=== PATIENT | female | born 1990 | race Caucasian/White ===

== ENCOUNTER 2018-04-05 23:41 | Emergency (ER) | payer OTHER ==
[2018-04-06] MEDS ORDERED: ZITHTAB PO (00:53)
--- NOTE | 2018-04-06 00:53 | PD ---
HPI Chief Complaint Patient complains of "cold "possible strep throat, headache, nausea vomiting Date Seen: Apr 06, 2018 Time Seen: 00:40 Travel History International Travel<30 Days: No Contact w/Intl Traveler<30Days: No Known Affected Area: No History of Present Illness HPI Patient is 27-year-old 37 weeks and [address] Sung who presents complaining of upper respiratory cold symptoms possible strep throat[ her daughter come down with strep throat], headache nausea and vomiting last 24-36 hours. Denies vaginal bleeding leakage or contractions Weeks Gestation: 37 Para: 1 : 2 History Past Medical History Narrative Medical GERD Obstetric History Obstetric History 1 vaginal delivery at term Social History Alcohol Use: No Tobacco Use: No Substance Abuse: No Allergies-Medications Home Meds Active Scripts Azithromycin (Zithromax Z-René) 250 Mg Dspk, 250 MG PO DIRECTED for Infection , #1 DSPK 0 Refills 500 MG (2 tabs) day 1, then 1 tab days 2-5. Prov:Jamey Duke II, MD 04/06/18 Review of Systems General / Constitutional: No: Fever, Weight Gain, Chills, Other Eyes: No: Diploplia, Blurred Vision, Visual changes, Pain, Photophobia HENT: Headaches, No: Vertigo, Lightheadedness Cardiovascular: No: Irregular Rhythm, Chest Pain or Discomfort, Palpitations, Tachycardia, Syncope, Varicosities, Edema, Cyanosis Respiratory: Cough, No: Short of Breath, Other Gastrointestinal: Nausea, Vomiting, No: Diarrhea Genitourinary: No: Decreased Urinary Output, Oliguria Musculoskeletal: No: Limited ROM, Weakness, Cramping, Edema, Pain Skin: No Rash, No Itching, No Dryness, No Lumps, No Change in Pigmentation, No Change in Nails, No Alopecia, No Lesions Neurologic: No: Weakness, Dizziness, Syncope, Focal Abnormalities, Coordination Problem, Headache, Slurred Speech, Seizures Psychiatric: No: Depression, Suicidal Ideations, Homicidal Ideation Endocrine: No: Heat Intolerance, Cold Intolerance, Polydipsia, Polyuria, Other Physical Exam Narrative GENERAL: Well-nourished, well-developed patient. SKIN: Warm and dry. HEAD: Normocephalic and atraumatic. EYES: No scleral icterus. No injection or drainage. ENT: No nasal drainage noted. Mucous membranes pink. Airway patent. NECK: Supple, trachea midline. No JVD. CARDIOVASCULAR: Regular rate and rhythm without murmurs, gallops, or rubs. RESPIRATORY: Breath sounds equal bilaterally. No accessory muscle use. BREASTS: Bilateral exam showed no masses , no retractions, no nipple discharge. ABDOMEN/GI: Abdomen soft, non-tender, bowel sounds present, no rebound, no guarding Gravid to [-37] weeks size Fundal Height: [37-] GENITOURINARY: Membranes: [intact ] Uterine Contractions: [none-] FHT's: Category: [1-] Baseline: [133-] Reactive: [R-] Variability: [mod-] Decels: [0-] EXTREMITIES: No cyanosis or edema. BACK: Nontender without obvious deformity. No CVA tenderness. NEUROLOGICAL: Awake and alert. Motor and sensory grossly within normal limits. Five out of 5 muscle strength in all muscle groups. Normal speech. Data Data Labs Urine dip on OB ED is negative for infection negative for protein negative for ketones MDM Interpretation(s) 27-year-old white female at 37 weeks who presented complaining of respiratory cold symptoms with sinus drainage stuffiness and cough, she has had nausea and vomiting last night but did not call her doctor during the day today to tell her all about these things, blood pressure is normal, PIH lab was drawn a week ago within normal limits, no proteinuria in her urine tonight Plan Plan for the patient to begin on a Z-René antibiotic for URI, Synex liquid for cough sinus congestion, Claritin for sinus congestion. She is to follow with Dr. Sung as scheduled on Sunday 2 days away Diagnosis Diagnosis: Primary Impression: Upper respiratory infection Additional Impressions: Nausea and vomiting in Headache 37 or more weeks gestation of Disposition: DISCHARGE HOME Condition: Stable Scripts Hydrocodone-Chlorpheniramine 12 HR Liq (Tussionex Pennkinetic Ext 12 HR Liq) 10- 8 Mg/5 Ml Susp 5 ML PO Q12H Y for COUGH AND/OR COLD SYMPTOMS for 5 Days, #50 ML 0 Refills Prov: Jamey Duke II, MD 04/06/18 Loratadine (Claritin) 10 Mg Cap 10 MG PO DAILY for Allergy Management for 10 Days, #10 CAP 0 Refills Prov: Jamey Duke II, MD 04/06/18 Azithromycin (Zithromax Z-René) 250 Mg Dspk 250 MG PO DIRECTED for Infection, #1 DSPK 0 Refills 500 MG (2 tabs) day 1, then 1 tab days 2-5. Prov: Jamey Duke II, MD 04/06/18 Patient Instructions: General Instructions, Movement (ED), Abdominal Pain in (ED) Departure Forms: Tests/Procedures Jamey Duke II, MD Apr 06, 2018 00:53
[2018-04-06] MEDS ORDERED: CLAR10CA3 PO (00:54)
[2018-04-06] MEDS ORDERED: TUSSSUS2 PO (00:55)
== END 2018-04-06 01:13 | disposition home or self-care (01) ==
LOC: HOBED 23:41
DX: O99.513 Diseases of the respiratory system complicating pregnancy, third trimester (principal); J06.9 Acute upper respiratory infection, unspecified; O21.2 Late vomiting of pregnancy; O26.893 Other specified pregnancy related conditions, third trimester; R51 Headache; Z3A.37 37 weeks gestation of pregnancy
CPT/HCPCS: 59025

== ENCOUNTER 2018-04-08 16:25 | Inpatient (IN) | payer OTHER ==
[2018-04-08] VITALS (59 sets, daily range): BP systolic 107–145; BP diastolic 60–103; PULSE 82–129; RESP 18–20; TEMP 99–100.4; O2SAT 98–100
[~2018-04-08 16:25] MED LIST: CLAR10CA3 PO; TUSSSUS2 PO; ZITHTAB PO
[2018-04-08] MEDS ORDERED: LACTATED RINGER'S 1000 ML INJ 1,000 ML IV PRN (17:06)
--- NOTE | 2018-04-08 17:11 | HHI.HP ---
HPI Chief Complaint PROM 04/05/16 37 6/7 weeks no evidence of infection admitted for induction H & P dictated Date Seen: Apr 08, 2018 Travel History International Travel<30 Days: No Contact w/Intl Traveler<30Days: No Known Affected Area: No Allergies-Medications (Allergen,Severity, Reaction): Coded Allergies: No Known Allergies (Unverified , 04/08/18) Home Meds Active Scripts Hydrocodone-Chlorpheniramine 12 HR Liq (Tussionex Pennkinetic Ext 12 HR Liq) 10- 8 Mg/5 Ml Susp, 5 ML PO Q12H Y for COUGH AND/OR COLD SYMPTOMS for 5 Days, #50 ML 0 Refills Prov:Jamey Duke II, MD 04/06/18 Loratadine (Claritin) 10 Mg Cap, 10 MG PO DAILY for Allergy Management for 10 Days, #10 CAP 0 Refills Prov:Jamey Duke II, MD 04/06/18 Azithromycin (Zithromax Z-René) 250 Mg Dspk, 250 MG PO DIRECTED for Infection , #1 DSPK 0 Refills 500 MG (2 tabs) day 1, then 1 tab days 2-5. Prov:Jamey Duke II, MD 04/06/18 Physical Exam Narrative GENERAL: Well-nourished, well-developed patient. SKIN: Warm and dry. HEAD: Normocephalic and atraumatic. EYES: No scleral icterus. No injection or drainage. ENT: No nasal drainage noted. Mucous membranes pink. Airway patent. NECK: Supple, trachea midline. No JVD. CARDIOVASCULAR: Regular rate and rhythm without murmurs, gallops, or rubs. RESPIRATORY: Breath sounds equal bilaterally. No accessory muscle use. BREASTS: Bilateral exam showed no masses , no retractions, no nipple discharge. ABDOMEN/GI: Abdomen soft, non-tender, bowel sounds present, no rebound, no guarding Gravid to [-] weeks size Fundal Height: [-] GENITOURINARY: External Genitalia: intact and normal in appearance BUS glands: [-] Cervix: [-] Dilatation: [-] Effacement: [-] Station: [-] Presentation: [-] Membranes: [intact or ruptured] Uterine Contractions: [-] FHT's: Category: [-] Baseline: [-] Reactive: [-] Variability: [-] Decels: [-] EXTREMITIES: No cyanosis or edema. BACK: Nontender without obvious deformity. No CVA tenderness. NEUROLOGICAL: Awake and alert. Motor and sensory grossly within normal limits. Five out of 5 muscle strength in all muscle groups. Normal speech. Caprini VTE Risk Assessment Caprini VTE Risk Assessment: No/Low Risk (score <= 1) Caprini Risk Assessment Model Point Value = 1 Point Value = 2 Point Value = 3 Point Value = 5 Age 41-60 Minor surgery BMI > 25 kg/m2 Swollen legs Varicose veins or History of unexplained or recurrent spontaneous Oral contraceptives or hormone replacement Sepsis (< 1 month) Serious lung disease, including pneumonia (< 1 month) Abnormal pulmonary function Acute myocardial infarction Congestive heart failure (< 1 month) History of inflammatory bowel disease Medical patient at bed rest Age 61-74 Arthroscopic surgery Major open surgery (> 45 min) Laparoscopic surgery (> 45 min) Malignancy Confined to bed (> 72 hours) Immobilizing plaster cast Central venous access Age >= 75 History of VTE Family history of VTE Factor V Leiden Prothrombin [id number] Lupus anticoagulant Anticardiolipin antibodies Elevated serum homocysteine Heparin-induced thrombocytopenia Other congenital or acquired thrombophilia Stroke (< 1 month) Elective arthroplasty Hip, pelvis, or leg fracture Acute spinal cord injury (< 1 month) Prophylaxis Regimen Total Risk Factor Score Risk Level Prophylaxis Regimen 0-1 Low Early ambulation 2 Moderate Order ONE of the following: *Sequential Compression Device (SCD) *Heparin 5000 units SQ BID 3-4 Higher Order ONE of the following medications: *Heparin 5000 units SQ TID *Enoxaparin/Lovenox 40 mg SQ daily (WT < 150 kg, CrCl > 30 mL/min) *Enoxaparin/Lovenox 30 mg SQ daily (WT < 150 kg, CrCl > 10-29 mL/min) *Enoxaparin/Lovenox 30 mg SQ BID (WT < 150 kg, CrCl > 30 mL/min) AND/OR *Sequential Compression Device (SCD) 5 or more Highest Order ONE of the following medications: *Heparin 5000 units SQ TID (Preferred with Epidurals) *Enoxaparin/Lovenox 40 mg SQ daily (WT < 150 kg, CrCl > 30 mL/min) *Enoxaparin/Lovenox 30 mg SQ daily (WT < 150 kg, CrCl > 10-29 mL/min) *Enoxaparin/Lovenox 30 mg SQ BID (WT < 150 kg, CrCl > 30 mL/min) AND *Sequential Compression Device (SCD) Data Data Orders Orders ^ Non Stress Test (04/08/18 17:06) Response To Medication .Post New Med Administration, Reaction (04/08/18 17:06) ^ Discontinue Medication (04/08/18 17:06) Oxytocin Drip (1--30) (04/08/18 17:15) Admit To Inpatient (04/08/18 ) Vital Signs (Adult) .Per protocol (04/08/18 17:06) Heart (04/08/18 17:) Amnioinfusion (04/08/18 17:) Urinary Catheter Management .ONCE (04/08/18 17:06) Lactated Ringer's 1000 Ml Inj (Lr 1000 M (04/08/18 17:06) Lactated Ringer's 1000 Ml Inj (Lr 1000 M (04/08/18 17:06) Sodium Chlorid 0.9% 500 Ml Inj (Ns 500 M (04/08/18 17:15) Sodium Chlor 0.9% 1000 Ml Inj (Ns 1000 M (04/08/18 17:26) Lidocaine 1% Inj (50 Ml) (Xylocaine 1% I (04/08/18 17:15) Citric Acid-Sodium Citrate Liq (Bicitra (04/08/18 17:15) Fentanyl Inj (Fentanyl Inj) (04/08/18 17:15) Fentanyl Inj (Fentanyl Inj) (04/08/18 17:15) Cefazolin Inj (Ancef Inj) (04/08/18 21:15) Complete Blood Count With Diff (04/08/18 17:06) Hold Clot (04/08/18 17:06) Abo/Rh Blood Type (04/08/18 17:06) Urinalysis - C+S If Indicated (04/08/18 17:06) Drug Screen, Random Urine (04/08/18 17:06) Ob/Psych Drug Screen, Urine (04/08/18 17:06) Hepatitis Profile (04/08/18 17:06) Resp Oxygen Non Rebreathe Mask (04/08/18 ) ^ Epidural / Intrathecal Infus (04/08/18 17:06) Oxytocin 30 Units-500ml Premix (Pitocin (04/08/18 17:15) Lidocaine 1% Inj (50 Ml) (Xylocaine 1% I (04/08/18 17:15) Light Mineral Oil (Muri-Lube Oil) (04/08/18 17:15) Inpatient Certification (04/08/18 ) Specimen To Be Collected PRN (04/08/18 17:06) Specimen To Be Collected PRN (04/08/18 17:06) Diet Regular Basic (04/08/18 Dinner) Yuliya Sung MD Apr 08, 2018 17:11
[2018-04-08] MEDS ORDERED: MINERAL OIL 10 ML VIAL TOPICAL PRN (17:15)
[2018-04-08] MEDS ORDERED: OXYTOCIN 30 UNITS-500ML PREMIX 500 ML IV ONE (17:15)
[2018-04-08] MEDS ORDERED: SODIUM CHLORID 0.9% 500 ML INJ 500 ML IV PRN (17:15)
[2018-04-08] MEDS ORDERED: LIDOCAINE HCL 1% 50 ML VIAL I-DERMAL PRN (17:15)
[2018-04-08] MEDS ORDERED: CITRIC ACID-SODIUM CITRATE LIQ 30 ML UDC PO SCH (17:15)
[2018-04-08] MEDS ORDERED: LIDOCAINE HCL 1% 50 ML VIAL INFIL PRN (17:15)
[2018-04-08] MEDS ORDERED: OXYTOCIN 30 UNITS-500ML PREMIX 500 ML IV PRN (17:15)
[2018-04-08 17:20] LABS: AUTOMATED NEUTROPHIL # 12.9 TH/MM3 (1.8-7.7); BASOPHIL % 0.3 % (0.0-2.0); EOSINOPHIL # 0.3 TH/MM3 (0-0.4); EOSINOPHIL % 1.7 % (0.0-4.0); HEMATOCRIT 37.9 % (35.0-46.0); LYMPH % 10.2 % (9.0-44.0); LYMPHOCYTE # 1.6 TH/MM3 (1.0-4.8); MEAN CELL VOLUME 86.7 FL (80.0-100.0); MEAN CORPUSCULAR HEMOGLOBIN 29.6 PG (27.0-34.0); MEAN CORPUSCULAR HGB CONC 34.2 % (32.0-36.0); MEAN PLATELET VOLUME 8.2 FL (7.0-11.0); MONO % 4.4 % (0.0-8.0); MONOCYTE # 0.7 TH/MM3 (0-0.9); NEUT % 83.4 % (16.0-70.0); PLATELET COUNT 214 TH/MM3 (150-450); RED BLOOD COUNT 4.38 MIL/MM3 (4.00-5.30); RED CELL DISTRIBUTION WIDTH 13.8 % (11.6-17.2); WHITE BLOOD COUNT 15.5 TH/MM3 (4.0-11.0)
--- NOTE | 2018-04-08 17:29 | MP ---
cc: Yuliya Sung MD DATE OF OPERATION: 04/08/2018 REASON FOR ADMISSION: Thirty-seven and 6/7 week intrauterine , with gross rupture of membranes possibly since Sunday evening, some symptomatology of preeclampsia without severe features. HISTORY OF PRESENT CONDITION: The patient is a pleasant, healthy [place] female, , 2, para 1-0-0-1, with LMP 07/17/2017 and EDC 04/23/2018 by her period and 04/18/2018 by 12-week ultrasound, currently at 37-6/7 by LMP. She has had excellent care with no gestational diabetes, no labor and no elevated blood pressures until 36 weeks, her diastolic started to be persistently in the 80s. She was having some proteinuria 1+ and having some headaches and some nausea. She was worked up for LFTs, uric acid and labs were all normal in the last several weeks, but she was counseled carefully on preeclampsia. On Sunday, she was noting leakage and nausea and vomiting and she went to the OB ED. There, she was determined to have a probable GI bug and was sent home. She continued to have leaking over the weekend and today she comes in. Her blood pressure is 110/80. She has 1+ protein and some trace glucose, but she has positive fern and positive Nitrazine and 3 cm and 80 percent. She is, therefore, being advised to go to the labor room for direct admission for induction for PROM. She has no headache today. No blurred vision. No nausea, no vomiting. She notes good movement. She has no fever, no diarrhea, no chills. Her blood type is A positive. Her hemoglobin was 11.7. She is immune to [place] measles, but not to chickenpox. She has not been exposed to any viruses according to her serology. Her quad screen showed no increased risk of defects. Her TSH was 2.5. Her 1-hour Glucola was normal and her group B strep was negative. PHYSICAL EXAMINATION: GENERAL: She is a well-developed, well-nourished, female in no acute distress. VITAL SIGNS: Her weight is 179, her blood pressure was 110/80. NECK: She had no thyroid enlargement. LUNGS: Clear. HEART: Regular. PELVIC: Fundus is term. Infant is vertex. Heart rate is in the 150s. Cervix was 3 cm with gross rupture of membranes, 80% and 0 station. She has no pitting edema. Normal deep tendon reflexes. Estimated weight is 7 pounds. Pelvis is clinically adequate and proven. IMPRESSION AND PLAN: Near 38-week intrauterine with premature rupture of membranes, possibly for more than 72 hours. Plan is to proceed with induction upon arrival to the OB department. She did have an epidural as desired. We may give prophylactic antibiotics. Labs for preeclampsia will be repeated. Anticipate a vaginal delivery. Yuliya Sung MD PPC/ , 04:01 PM , 05:29 PM
[2018-04-08] MEDS ORDERED: SODIUM CHLOR 0.9% 1000 ML INJ 1,000 ML IV PRN (18:00)
[2018-04-08 18:46] LABS: BACTERIA, URINE RARE /hpf; BILIRUBIN, URINE NEG (NEG); BLOOD, URINE NEG (NEG); GLUCOSE,URINE NEG (NEG); KETONE, URINE NEG (NEG); MUCUS URINE FEW /lpf (OCC); NITRITE,URINE NEG (NEG); SQUAMOUS EPITHELIAL CELL URINE 1 /hpf (0-5); URINE COLOR YELLOW (YELLW/STRAW); URINE LEUKOCYTE ESTERASE TRACE (NEG)
[2018-04-08] MEDS ORDERED: ceFAZolin 1,000 MG/NS 100 ML IV ONE ×2 (19:00)
[2018-04-08] MEDS: LACTATED RINGER'S 1000 ML INJ 1,000 ML IV SCH ×2 (19:01→21:05)
[2018-04-08] MEDS ORDERED: fentaNYL 2MCG-BUPIV 0.125% INJ 150 ML EPIDURAL ONE (19:56)
[2018-04-08] MEDS ORDERED: ACETAMINOPHEN 325 MG TAB PO PRN (22:15)
--- NOTE | 2018-04-08 22:36 | PD.LABORPN ---
Subjective Subjective has persistent RUQT that has been on and off through third trimester no headache , N, V epidural helping Objective Vital Signs Vital Signs Date Time Temp Pulse Resp B/P (MAP) Pulse Ox O2 Delivery O2 Flow Rate FiO2 1818 22:20 97 6/18/18 22:20 100 145/82 (103) 100 6/18/18 22:15 91 100 6/18/18 22:10 96 100 6/18/18 22:05 94 100 618/18 22:00 99 618/18 22:00 128 134/101 (112) 100 618/18 21:55 102 100 6/18/18 21:50 95 100 6/18/18 21:45 89 6/18/18 21:45 100 18/18 21:42 18 618/18 21:40 83 6/18/18 21:40 100 6/18/18 21:40 85 128/74 (92) 04/08/18 21:35 100 6/18/18 21:35 94 618/18 21:30 100 6/18/18 21:30 91 6/18/18 21:25 105 100 6/18/18 21:20 99 114/63 (80) 618/18 21:20 100 6/18/18 21:15 100 6/18/18 21:14 18 6/18/18 21:10 105 100 6/18/18 21:05 106 100 6/18/18 21:05 18 6/18/18 21:00 99 125/72 (89) 100 18/18 21:00 103 6/18/18 20:58 102 127/86 (100) 618/18 20:55 100 6/18/18 20:55 103 6/18/18 20:54 112/60 (77) 618/18 20:51 114/65 (81) 618/18 20:50 20 6/18/18 20:50 100 6/18/18 20:45 95 6/18/18 20:45 93 116/66 (83) 99 618/18 20:42 95 107/67 (80) 618/18 20:40 101 6/18/18 20:40 100 6/18/18 20:39 102 125/67 (86) 618/18 20:35 100 1818 20:35 82 6/18/18 20:34 83 135/81 (99) 18 20:34 20 18/18 20:30 84 18/18 20:30 83 132/91 (105) 18 20:30 100 18/18 20:28 107 144/71 (95) 04/08/18 20:25 85 18 20:25 84 132/95 (107) 18 20:25 100 1818 20:21 97 18 20:21 134/103 (113) 04/08/18 20:20 96 04/08/18 20:20 100 04/08/18 20:18 96 04/08/18 20:18 134/79 (97) 04/08/18 20:15 94 18 20:15 100 18 20:15 98 04/08/18 20:15 133/85 (101) 04/08/18 20:13 129 110/94 (99) 04/08/18 20:11 90 18 20:11 110/84 (93) 04/08/18 20:10 91 100 04/08/18 20:06 101 04/08/18 20:06 125/103 (110) 04/08/18 20:00 99.0 18 19:53 18 Objective 5-6/80/-1 strip had variables that improved with amnioinfusion good BTBV still some variables but mild teodora spontaneously Gest Age Assessed Date: Apr 08, 2018 Pt started active labor?: Yes Active labor start date: Apr 08, 2018 Active labor start time: 22:34 Medical induction of labor?: No Artificial rupture of membrane: No Assessment/Plan Assessment and Plan PROM at 38 weeks for >72 hours mild BP elevations labor commencing spontaneously will not augment at this time. continue ancef need to check LFTs not clear why they are not back. anticipate Yuliya Caldwell MD Apr 08, 2018 22:36
[2018-04-09] VITALS (27 sets, daily range): BP systolic 53–132; BP diastolic 32–100; PULSE 69–104; RESP 18–22; TEMP 97.6–98.2; O2SAT 96–100
--- NOTE | 2018-04-09 01:55 | PD.LABORPN ---
Subjective Subjective noted pressure and checked and found to be complete ready to start pushing strip category 2 anticipate imminent delivery Objective Vital Signs Vital Signs Date Time Temp Pulse Resp B/P (MAP) Pulse Ox O2 Delivery O2 Flow Rate FiO2 04/09/18 01:41 95 121/74 (90) 04/09/18 01:40 99 04/09/18 01:25 99 04/09/18 01:23 98.2 18 04/09/18 01:20 112/66 (81) 04/09/18 01:20 95 98 04/09/18 01:15 93 98 04/09/18 01:10 100 04/09/18 01:10 95 04/09/18 01:00 110/65 (80) 04/09/18 00:55 98 04/09/18 00:55 104 04/09/18 00:40 92 116/65 (82) 04/09/18 00:40 98 04/09/18 00:35 98 04/09/18 00:25 98 100 04/09/18 00:20 119/68 (85) 04/09/18 00:10 88 98 04/09/18 00:04 113/58 (76) 04/09/18 00:01 53/32 (39) 04/08/18 23:55 96 98 04/08/18 23:40 97 116/72 (87) 04/08/18 23:40 99 04/08/18 23:35 99 04/08/18 23:34 100.4 04/08/18 23:30 99 04/08/18 23:25 95 100 18 23:20 89 129/76 (93) 18 23:15 18 04/08/18 23:10 98 04/08/18 23:10 100 18 23:00 93 126/78 (94) 100 18 22:55 89 100 18 22:50 93 100 18 22:45 94 100 18 22:40 96 100 1818 22:40 124/82 (96) 04/08/18 22:30 98 100 18 22:25 93 18 22:25 100 18 22:20 97 18 22:20 100 145/82 (103) 100 6/18/18 22:15 91 100 6/18/18 22:10 96 100 6/18/18 22:05 94 100 6/18/18 22:00 99 6/18/18 22:00 128 134/101 (112) 100 6/18/18 21:55 102 100 6/18/18 21:50 95 100 6/18/18 21:45 89 6/18/18 21:45 100 6/18/18 21:42 18 6/18/18 21:40 83 6/18/18 21:40 100 6/18/18 21:40 85 128/74 (92) 6/18/18 21:35 100 6/18/18 21:35 94 6/18/18 21:30 100 6/18/18 21:30 91 6/18/18 21:25 105 100 6/18/18 21:20 99 114/63 (80) 6/18/18 21:20 100 6/18/18 21:15 100 6/18/18 21:14 18 6/18/18 21:10 105 100 6/18/18 21:05 106 100 6/18/18 21:05 18 6/18/18 21:00 99 125/72 (89) 100 6/18/18 21:00 103 6/18/18 20:58 102 127/86 (100) 6/18/18 20:55 100 6/18/18 20:55 103 6/18/18 20:54 112/60 (77) 6/18/18 20:51 114/65 (81) 6/18/18 20:50 20 6/18/18 20:50 100 6/18/18 20:45 95 6/18/18 20:45 93 116/66 (83) 99 6/18/18 20:42 95 107/67 (80) 6/18/18 20:40 101 6/18/18 20:40 100 6/18/18 20:39 102 125/67 (86) 6/18/18 20:35 100 6/18/18 20:35 82 6/18/18 20:34 83 135/81 (99) 6/18/18 20:34 20 6/18/18 20:30 84 6/18/18 20:30 83 132/91 (105) 6/18/18 20:30 100 18 20:28 107 144/71 (95) 04/08/18 20:25 85 04/08/18 20:25 84 132/95 (107) 04/08/18 20:25 100 1818 20:21 97 04/08/18 20:21 134/103 (113) 04/08/18 20:20 96 04/08/18 20:20 100 04/08/18 20:18 96 04/08/18 20:18 134/79 (97) 04/08/18 20:15 94 04/08/18 20:15 100 04/08/18 20:15 98 04/08/18 20:15 133/85 (101) 04/08/18 20:13 129 110/94 (99) 04/08/18 20:11 90 04/08/18 20:11 110/84 (93) 04/08/18 20:10 91 100 04/08/18 20:06 101 04/08/18 20:06 125/103 (110) 04/08/18 20:00 99.0 04/08/18 19:53 18 Objective Pelvic Exam: Cervix: [-] Dilatation: [-] Effacement: [-] Station: [-] Presentation: [-] Membranes: [intact or ruptured] Uterine Contractions: [-] FHT's: Category: [-] Baseline: [-] Reactive: [-] Variability: [-] Decels: [-] Gest Age Assessed Date: Apr 08, 2018 Pt started active labor?: Yes Active labor start date: Apr 08, 2018 Active labor start time: 22:34 Medical induction of labor?: No Artificial rupture of membrane: No Yuliya Sung MD Apr 09, 2018 01:55
--- NOTE | 2018-04-09 02:19 | PD.OB.DELI ---
Gest age assessed date: Apr 08, 2018 Pt started active labor?: Yes Active labor start date: Apr 08, 2018 Active labor start time: 22:34 Medical induction of labor?: No Artificial rupture of membrane: No Anesthesia: Epidural Episiotomy: None Vaginal Delivery: Normal Presentation: Occiput anterior Nuchal Cord: x1 Delayed cord clamping (45 sec): Yes Infant: Female Delivery date: Apr 09, 2018 Delivery time: 02:18 One Minute : 8 Five Minute : 9 Weight: 5 Placenta: Spontaneous delivery Laceration: No lacerations Estimated blood loss: 400 Additional Information with mild elevations of BP and now NAVARRO will obtain LFTS and CBC in am placenta appeared normal and mild atony addressed with Yuliya Bojorquez MD Apr 09, 2018 02:19
[2018-04-09] MEDS ORDERED: ONDANSETRON ODT 4 MG TAB PO PRN (02:30)
[2018-04-09] MEDS ORDERED: ALUMINUM/MAGNESIUM/SIMETH 30 ML CUP PO PRN (02:30)
[2018-04-09] MEDS ORDERED: SODIUM CHLORIDE 0.9% FLUSH 10 ML FLUSH IV FLUSH PRN (02:30)
[2018-04-09] MEDS ORDERED: DOCUSATE SODIUM 50 MG/SENNA 8.6 MG TAB PO PRN (02:30)
[2018-04-09] MEDS ORDERED: ZOLPIDEM TARTRATE 5 MG TAB PO PRN (02:30)
[2018-04-09] MEDS ORDERED: WITCH HAZEL 50%/GLYCERIN 12.5% 40 PAD JAR TOPICAL PRN (02:30)
[2018-04-09] MEDS ORDERED: OXYTOCIN 30 UNITS-500ML PREMIX 500 ML IV SCH (02:30)
[2018-04-09] MEDS ORDERED: BENZOCAINE 20% TOPICAL SPRAY 60 ML CAN TOPICAL PRN (02:30)
[2018-04-09] MEDS: ACETAMINOPHEN 325 MG TAB PO PRN ×2 (03:27→22:01)
[2018-04-09 04:15] LABS: AUTOMATED NEUTROPHIL # 15.9 TH/MM3 (1.8-7.7); BASOPHIL % 0.1 % (0.0-2.0); EOSINOPHIL # 0.1 TH/MM3 (0-0.4); EOSINOPHIL % 0.5 % (0.0-4.0); HEMATOCRIT 36.6 % (35.0-46.0); HEMOGLOBIN 12.1 GM/DL (11.6-15.3); LYMPH % 7.1 % (9.0-44.0); LYMPHOCYTE # 1.3 TH/MM3 (1.0-4.8); MEAN CELL VOLUME 85.9 FL (80.0-100.0); MEAN CORPUSCULAR HEMOGLOBIN 28.6 PG (27.0-34.0); MEAN CORPUSCULAR HGB CONC 33.2 % (32.0-36.0); MONO % 3.2 % (0.0-8.0); MONOCYTE # 0.6 TH/MM3 (0-0.9); NEUT % 89.1 % (16.0-70.0); PLATELET COUNT 195 TH/MM3 (150-450); RED BLOOD COUNT 4.25 MIL/MM3 (4.00-5.30); RED CELL DISTRIBUTION WIDTH 13.5 % (11.6-17.2); WHITE BLOOD COUNT 17.8 TH/MM3 (4.0-11.0)
[2018-04-09 04:34] LABS: ALBUMIN 2.4 GM/DL (3.4-5.0); DIRECT BILIRUBIN ADULT 0.1 MG/DL (0.0-0.2)
[2018-04-09 04:36] LABS: INDIRECT BILIRUBIN 0.5 MG/DL (0.0-0.8); TOTAL BILIRUBIN ADULT 0.6 MG/DL (0.2-1.0); TOTAL PROTEIN 6.3 GM/DL (6.4-8.2)
--- NOTE | 2018-04-09 08:34 | HHI.OB ---
Subjective Post Day: 0 Remarks Has had decreased bleeding. She has changed pad once. No further headaches. Objective Vitals/I&O Vital Signs Date Time Temp Pulse Resp B/P (MAP) Pulse Ox O2 Delivery O2 Flow Rate FiO2 04/09/18 08:00 70 22 96 04/09/18 08:00 98.0 04/09/18 08:00 128/74 (92) 04/09/18 03:30 18 04/09/18 03:23 87 04/09/18 03:23 122/100 (107) 04/09/18 03:15 18 04/09/18 03:14 97.9 86 132/75 (94) 04/09/18 03:00 89 125/62 (83) 04/09/18 03:00 18 04/09/18 02:41 84 18 132/83 (99) 04/09/18 02:20 96 130/86 (101) 04/09/18 02:18 93 126/69 (88) 04/09/18 02:18 98.1 18 04/09/18 02:01 103/61 (75) 04/09/18 02:01 92 04/09/18 01:41 95 121/74 (90) 04/09/18 01:40 99 04/09/18 01:25 99 04/09/18 01:23 98.2 18 04/09/18 01:20 112/66 (81) 04/09/18 01:20 95 98 04/09/18 01:15 93 98 04/09/18 01:10 100 04/09/18 01:10 95 04/09/18 01:00 110/65 (80) 04/09/18 00:55 98 04/09/18 00:55 104 04/09/18 00:40 92 116/65 (82) 04/09/18 00:40 98 04/09/18 00:35 98 04/09/18 00:25 98 100 04/09/18 00:20 119/68 (85) 04/09/18 00:10 88 98 04/09/18 00:04 113/58 (76) 04/09/18 00:01 53/32 (39) 04/08/18 23:55 96 98 04/08/18 23:40 97 116/72 (87) 6/18/18 23:40 99 6/18/18 23:35 99 6/18/18 23:34 100.4 6/18/18 23:30 99 6/18/18 23:25 95 100 6/18/18 23:20 89 129/76 (93) 6/18/18 23:15 18 6/18/18 23:10 98 6/18/18 23:10 100 6/18/18 23:00 93 126/78 (94) 100 6/18/18 22:55 89 100 6/18/18 22:50 93 100 6/18/18 22:45 94 100 6/18/18 22:40 96 100 6/18/18 22:40 124/82 (96) 6/18/18 22:30 98 100 6/18/18 22:25 93 6/18/18 22:25 100 6/18/18 22:20 97 6/18/18 22:20 100 145/82 (103) 100 6/18/18 22:15 91 100 6/18/18 22:10 96 100 6/18/18 22:05 94 100 6/18/18 22:00 99 6/18/18 22:00 128 134/101 (112) 100 6/18/18 21:55 102 100 6/18/18 21:50 95 100 6/18/18 21:45 89 6/18/18 21:45 100 6/18/18 21:42 18 6/18/18 21:40 83 6/18/18 21:40 100 6/18/18 21:40 85 128/74 (92) 6/18/18 21:35 100 6/18/18 21:35 94 6/18/18 21:30 100 6/18/18 21:30 91 6/18/18 21:25 105 100 6/18/18 21:20 99 114/63 (80) 6/18/18 21:20 100 6/18/18 21:15 100 6/18/18 21:14 18 6/18/18 21:10 105 100 6/18/18 21:05 106 100 6/18/18 21:05 18 6/18/18 21:00 99 125/72 (89) 100 6/18/18 21:00 103 6/18/18 20:58 102 127/86 (100) 6/18/18 20:55 100 6/18/18 20:55 103 6/18/18 20:54 112/60 (77) 6/18/18 20:51 114/65 (81) 6/18/18 20:50 20 6/18/18 20:50 100 6/18/18 20:45 95 6/18/18 20:45 93 116/66 (83) 99 6/18/18 20:42 95 107/67 (80) 6/18/18 20:40 101 6/18/18 20:40 100 6/18/18 20:39 102 125/67 (86) 6/18/18 20:35 100 6/18/18 20:35 82 6/18/18 20:34 83 135/81 (99) 6/18/18 20:34 20 6/18/18 20:30 84 6/18/18 20:30 83 132/91 (105) 6/18/18 20:30 100 6/18/18 20:28 107 144/71 (95) 6/18/18 20:25 85 6/18/18 20:25 84 132/95 (107) 6/18/18 20:25 100 6/18/18 20:21 97 6/18/18 20:21 134/103 (113) 6/18/18 20:20 96 6/18/18 20:20 100 6/18/18 20:18 96 6/18/18 20:18 134/79 (97) 6/18/18 20:15 94 6/18/18 20:15 100 6/18/18 20:15 98 6/18/18 20:15 133/85 (101) 6/18/18 20:13 129 110/94 (99) 6/18/18 20:11 90 6/18/18 20:11 110/84 (93) 6/18/18 20:10 91 100 6/18/18 20:06 101 6/18/18 20:06 125/103 (110) 6/18/18 20:00 99.0 6/18/18 19:53 18 Objective Remarks GENERAL: Well-nourished, well-developed patient. CARDIOVASCULAR: RESPIRATORY: No accessory muscle use. ABDOMEN/GI: Abdomen soft, non-tender. Fundus: Firm, non-tender at umbilicus. GENITOURINARY: Light to moderate bleeding. EXTREMITIES: No cyanosis or edema, non-tender, without signs of DVT. Medications and IVs Current Medications Medications (Trade) Dose Ordered Sig/Avel Route Start Time Stop Time Status Last Admin (Muri-Lube Oil) 10 ml UNSCH PRN TOPICAL 04/08/18 17:15 (NS Flush) 2 ml BID IV FLUSH 04/09/18 09:00 (NS Flush) 2 ml UNSCH PRN IV FLUSH 04/09/18 02:30 (Tylenol) 650 mg Q4H PRN PO 04/09/18 02:30 04/09/18 03:27 (Motrin) 800 mg Q8H PRN PO 04/09/18 02:30 (Americaine 20% Top Spr) 1 spray Q4H PRN TOPICAL 04/09/18 02:30 (Tucks Pads) 1 applic QID PRN TOPICAL 04/09/18 02:30 (Swati-Colace) 2 tab Q12H PRN PO 04/09/18 02:30 (Ambien) 5 mg HS PRN PO 04/09/18 02:30 (M-M-R Ii Inj) 0.5 ml ONCE ONCE SQ 04/09/18 16:00 04/09/18 16:01 (Boostrix Inj) 0.5 ml ONCE ONCE IM 04/09/18 16:00 04/09/18 16:01 (Mag-Al Plus Susp Liq) 15 ml Q8H PRN PO 04/09/18 02:30 (Zofran Odt) 4 mg Q6H PRN PO 04/09/18 02:30 Assessment/Plan Problem List: (1) (spontaneous vaginal delivery) ICD Codes: O80 - Encounter for full-term uncomplicated delivery Assessment and Plan POD 0 cont to monitor bleeding Reflux- zantac rx Elevated BP at time of dlivery, nl udip, lft and cr. NAVARRO has resolved. Nl bp now. Does not meet criteria for Pre-e BrodyTashia bowser MD Apr 09, 2018 08:34
[2018-04-09] MEDS: RANITIDINE HCL SYRUP 150 MG/10 ML UDC PO SCH ×2 (09:00→21:00)
[2018-04-09] MEDS: SODIUM CHLORIDE 0.9% FLUSH 10 ML FLUSH IV FLUSH SCH (09:56)
[2018-04-09] MEDS: IBUPROFEN 800 MG TAB PO PRN ×2 (10:03→22:01)
[2018-04-09] MEDS ORDERED: DIPHTH/TETANUS/ACEL PERTUSSIS (BOOSTER) 0.5 ML VIAL/PFS IM ONE (16:00)
[2018-04-09] MEDS ORDERED: MEASLES, MUMPS, RUBELLA VACCINE 0.5 ML VIAL SQ ONE (16:00)
[2018-04-10] MEDS: IBUPROFEN 800 MG TAB PO PRN ×3 (06:25→23:14)
[2018-04-10] MEDS: ACETAMINOPHEN 325 MG TAB PO PRN ×2 (06:25→23:15)
[2018-04-10] MEDS: RANITIDINE HCL SYRUP 150 MG/10 ML UDC PO SCH (09:00)
[2018-04-10] MEDS: SODIUM CHLORIDE 0.9% FLUSH 10 ML FLUSH IV FLUSH SCH (09:00)
--- NOTE | 2018-04-10 09:16 | HHI.OB ---
Subjective Post Day: 1 Remarks PPD#1stable, BP range normal Objective Vitals/I&O Vital Signs Date Time Temp Pulse Resp B/P (MAP) Pulse Ox O2 Delivery O2 Flow Rate FiO2 04/09/18 21:06 97.6 69 18 116/70 (85) Objective Remarks GENERAL: Well-nourished, well-developed patient. CARDIOVASCULAR: RESPIRATORY: No accessory muscle use. ABDOMEN/GI: Abdomen soft, non-tender. Fundus: Firm, non-tender at umbilicus. GENITOURINARY: Light to moderate bleeding. EXTREMITIES: No cyanosis or edema, non-tender, without signs of DVT. Medications and IVs Current Medications Medications (Trade) Dose Ordered Sig/Avel Route Start Time Stop Time Status Last Admin (Muri-Lube Oil) 10 ml UNSCH PRN TOPICAL 04/08/18 17:15 (NS Flush) 2 ml BID IV FLUSH 04/09/18 09:00 04/09/18 09:56 (NS Flush) 2 ml UNSCH PRN IV FLUSH 04/09/18 02:30 (Tylenol) 650 mg Q4H PRN PO 04/09/18 02:30 04/10/18 06:25 (Motrin) 800 mg Q8H PRN PO 04/09/18 02:30 04/10/18 06:25 (Americaine 20% Top Spr) 1 spray Q4H PRN TOPICAL 04/09/18 02:30 (Tucks Pads) 1 applic QID PRN TOPICAL 04/09/18 02:30 (Wsati-Colace) 2 tab Q12H PRN PO 04/09/18 02:30 (Ambien) 5 mg HS PRN PO 04/09/18 02:30 (Mag-Al Plus Susp Liq) 15 ml Q8H PRN PO 04/09/18 02:30 (Zofran Odt) 4 mg Q6H PRN PO 04/09/18 02:30 (Zantac Liq) 150 mg Q12HR PO 04/09/18 09:00 Assessment/Plan Problem List: (1) (spontaneous vaginal delivery) ICD Codes: O80 - Encounter for full-term uncomplicated delivery Assessment and Plan PPD#1, doing well, BP stable; reflux improved. Discharge Planning plan discharge for tomorrow, PPD#2 Attending Attestation seen by me Joyce,Leroy Malcom MD Apr 10, 2018 09:16
--- NOTE | 2018-04-10 09:18 | HHI.DS ---
Admission Date Apr 08, 2018 at 16:25 Admitting Diagnosis Diagnosis: Delivery Date: Apr 09, 2018 Vaginal Delivery: Normal Infant: Female Pt Condition on Discharge: Good Discharge Disposition: Discharge Home Discharge Instructions Diet Instructions: As Tolerated, No Restrictions Activities You Can Perform: Shower Only-No Bath, Pelvic Rest Activities to Avoid: Driving for 24 hrs, Prolonged Standing, Strenuous Activity Leroy Joyce MD Apr 10, 2018 09:18
[2018-04-10] MEDS ORDERED: DIPHTH/TETANUS/ACEL PERTUSSIS (BOOSTER) 0.5 ML VIAL/PFS IM ONE (11:15)
[2018-04-10 20:00] VITALS: BP 114/74; PULSE 74; RESP 18; TEMP 98.3; O2SAT 98
--- NOTE | 2018-04-11 07:36 | HHI.OB ---
Subjective Post Day: 2 Remarks doing well, Objective Vitals/I&O Vital Signs Date Time Temp Pulse Resp B/P (MAP) Pulse Ox O2 Delivery O2 Flow Rate FiO2 04/10/18 20:00 98.3 74 18 114/74 (87) 98 Objective Remarks GENERAL: Well-nourished, well-developed patient. CARDIOVASCULAR: RESPIRATORY: No accessory muscle use. ABDOMEN/GI: Abdomen soft, non-tender. Fundus: Firm, non-tender at umbilicus. GENITOURINARY: Light to moderate bleeding. EXTREMITIES: No cyanosis or edema, non-tender, without signs of DVT. Medications and IVs Current Medications Medications (Trade) Dose Ordered Sig/Avel Route Start Time Stop Time Status Last Admin (Muri-Lube Oil) 10 ml UNSCH PRN TOPICAL 04/08/18 17:15 (NS Flush) 2 ml BID IV FLUSH 04/09/18 09:00 04/09/18 09:56 (NS Flush) 2 ml UNSCH PRN IV FLUSH 04/09/18 02:30 (Tylenol) 650 mg Q4H PRN PO 04/09/18 02:30 04/10/18 23:15 (Motrin) 800 mg Q8H PRN PO 04/09/18 02:30 04/10/18 23:14 (Americaine 20% Top Spr) 1 spray Q4H PRN TOPICAL 04/09/18 02:30 (Tucks Pads) 1 applic QID PRN TOPICAL 04/09/18 02:30 (Swati-Colace) 2 tab Q12H PRN PO 04/09/18 02:30 04/10/18 23:15 (Ambien) 5 mg HS PRN PO 04/09/18 02:30 (Mag-Al Plus Susp Liq) 15 ml Q8H PRN PO 04/09/18 02:30 (Zofran Odt) 4 mg Q6H PRN PO 04/09/18 02:30 (Zantac Liq) 150 mg Q12HR PO 04/09/18 09:00 Assessment/Plan Problem List: (1) (spontaneous vaginal delivery) ICD Codes: O80 - Encounter for full-term uncomplicated delivery Assessment and Plan PPD#2, doing well, BP stable; reflux improved. Discharge Planning plan discharge for today, PPD#2 Attending Attestation pt seen by Rica Boston MD Apr 11, 2018 07:36
[2018-04-11 08:00] VITALS: BP 126/74; PULSE 64; RESP 20; TEMP 97.6; O2SAT 97
[2018-04-11] MEDS: RANITIDINE HCL SYRUP 150 MG/10 ML UDC PO SCH (09:00)
[2018-04-11] MEDS: SODIUM CHLORIDE 0.9% FLUSH 10 ML FLUSH IV FLUSH SCH (09:02)
== END 2018-04-11 11:01 | disposition home or self-care (01) | DRG 775 ==
LOC: H2EB 16:25 → H1EA 04-09 04:14
PROVIDERS: ADMIT Obstetrics & Gynecology; ATTEND Obstetrics & Gynecology
PROC: 10E0XZZ Delivery of Products of Conception, External Approach (ICD-10-PCS; principal; 2018-04-09)
DX: O42.12 Full-term premature rupture of membranes, onset of labor more than 24 hours following rupture (principal); R03.0 Elevated blood-pressure reading, without diagnosis of hypertension; K21.9 Gastro-esophageal reflux disease without esophagitis; O69.81X0 Labor and delivery complicated by cord around neck, without compression, not applicable or unspecified; O99.62 Diseases of the digestive system complicating childbirth; O75.89 Other specified complications of labor and delivery; O99.89 Other specified diseases and conditions complicating pregnancy, childbirth and the puerperium; Z37.0 Single live birth; Z3A.37 37 weeks gestation of pregnancy
CPT/HCPCS: 80074; 80076; 80307; 81001; 85025; 86900; 86901; 90715; G0481; J0690; J2590; J7120